=== PATIENT | female | born 1945 | race Caucasian/White ===

== ENCOUNTER 2024-11-09 15:27 | Outpatient (CLI) | payer MEDICARE, OTHER ==
--- NOTE | 2024-11-10 05:56 | RADIOLOGY REPORT ---
PROCEDURE: MR MRI LUMBAR SPINE INDICATION: OTHER SPECIFIED JOINT DISORDER Exam Date: 11/09/2024 03:39 PM COMPARISON: NoneNone available at time of dictation. TECHNIQUE: MRI lumbar spine without intravenous contrast. FINDINGS: No fractures are identified about the lumbar spine. The conus terminates at L2. L1-L2: There is slight retrolisthesis L1 on L2. There is disc desiccation with loss of disc height. T here is a circumferential broad disc bulge with endplate hypertrophy. There is bilateral facet hypert rophy. No significant spinal canal stenosis or neural foraminal stenosis bilaterally. L2-L3: There is disc desiccation with mild loss of disc height. There is a circumferential broad dis c bulge with endplate hypertrophy, most prominent in the right anterior region. There is bilateral f acet hypertrophy. No significant spinal canal stenosis or neural foraminal stenosis bilaterally. L3-L4: There is disc desiccation with loss of disc phenomenon in the disc. There are Schmorl's nodes in the L3 inferior endplate. There is a circumferential broad disc bulge with endplate hypertrophy, m ost prominent in the foraminal regions. There is bilateral facet and ligamentum flavum hypertrophy. The AP dimension of the spinal canal measures 8 mm. There is mild bilateral neural foraminal stenosi s. L4-L5: There is disc desiccation without loss of disc height. Probable vacuum phenomenon in the disc . There are small Schmorl's nodes in the L4 inferior endplate. There is a circumferential broad disc bulge with endplate hypertrophy, most prominent in the left foraminal region. There is bilateral face t and ligamentum flavum hypertrophy. The AP dimension of the spinal canal measures 6 mm. There is m ild right and moderate left neural foraminal stenosis. L5-S1: There is grade 1 anterolisthesis L5 on S1 measuring 6.5 mm AP, without evidence of spondylolys is. There is disc desiccation without loss of disc height. There is a circumferential broad disc bulg e with endplate hypertrophy. There is bilateral facet and ligamentum flavum hypertrophy. The AP dim ension of the spinal canal measures 4.5 mm. There is mild right and moderate left neural foraminal st enosis. IMPRESSION: 1. No fracture of the lumbar spine. 2. Advanced degenerative disc disease and facet arthropathy with moderate to severe spinal canal sten osis L5-S1, moderate spinal canal stenosis L4-L5, mild spinal canal stenosis L3-L4. 3. Significant neural foraminal stenosis on the left at L4-L5 and L5-S1. These findings May correspon d to left lower extremity radicular symptoms in the L4 and L5 nerve root distributions.
== END 2024-11-09 23:59 | disposition home or self-care (01) ==
LOC: MRI02 15:27
PROVIDERS: ATTEND Family Medicine Sports Medicine
DX: M51.17 Intervertebral disc disorders with radiculopathy, lumbosacral region (principal); M70.61 Trochanteric bursitis, right hip; M25.812 Other specified joint disorders, left shoulder; M25.551 Pain in right hip; M25.512 Pain in left shoulder; M43.17 Spondylolisthesis, lumbosacral region; M47.817 Spondylosis without myelopathy or radiculopathy, lumbosacral region; M48.07 Spinal stenosis, lumbosacral region
CPT/HCPCS: 72148